=== PATIENT | female | born 1945 | race Caucasian/White ===

== ENCOUNTER → 2017-06-23 | Outpatient (CLI) | payer OTHER ==
[~2017-06-23] MED LIST: ADVAIR HFA120 INHALA IH; ASPIR-LOW81 MG PO; ASPIRIN81 M2 PO; BISAC-EVAC10 MG PR; CIPRO500 MG PO; COUMADIN3 MG PO; DOCUSATE SODIU100 MG PO; DUONEB 2.5-0.5 M3 ML AEROSOL; DUONEB 2.5-0.5 M3 ML IPPB; ELIQUIS2.5 MG PO; FERROUS SULFAT325 MG PO; FUROSEMIDE20 MG PO; FUROSEMIDE40 MG PO; GABAPENTIN100 MG PO; GLUCAGEN1 MG IM/SC; GLYBURIDE5 MG PO; IMDUR60 MG PO; IPRATR-ALBUTEROL3 ML IH; ISOSORBIDE MONO30 MG PO; ISOSORBIDE MONO60 MG PO; K-DUR20 MEQ PO; KLOR-CON M2020 MEQ PO; LEVEMIR100 UNIT/2 SC; LEVOFLOXACIN750 MG PO; LOPRESSOR25 MG PO; LOSARTAN POTASS50 MG PO; LOVENOX30 MG/0.3 SC; Lasix PO; MAG-OXIDE400 MG PO; METFORMIN HCL1000 MG PO; METFORMIN HCL500 MG PO; METOPROLOL TART25 MG PO; MICONAZOLE NITR30 GM TP; NABI650T PO; NEBULIZER MC; NOVOLOG PE100 UNITS/ SC; NYSTATIN15 GM TP; OXYCODONE HCL5 MG PO; PIOGLITAZONE HC30 MG PO; PRAVASTATIN SOD40 MG PO; SPIRIVA RESPIMAT4 GM IH; ST. JOSEPH ASPI81 MG PO; TYLENOL REGULA325 MG PO; VITAMIN D31000 UNIT PO; VITAMIN D32000 UNI1 PO; WARFARIN SODIUM3 MG PO; ZINC OXIDE56.7 GM TP
== END | disposition home or self-care (01) ==
LOC: NUC 06-16 09:00
DX: R93.7 Abnormal findings on diagnostic imaging of other parts of musculoskeletal system (principal)
CPT/HCPCS: 78315; A9503

== ENCOUNTER → 2017-07-03 | Outpatient (CLI) | payer OTHER | END | disposition home or self-care (01) | LOC: NUC 06:30 → WOUND 07:30 → NUC 08:00 | PROC: C71 Nuclear Medicine, Lymphatic and Hematologic System, Planar Nuclear Medicine Imaging (ICD-10-PCS; principal; 2017-07-03) | PROC: C7101ZZ Planar Nuclear Medicine Imaging of Bone Marrow using Technetium 99m (Tc-99m) (ICD-10-PCS; principal; 2017-07-03) | DX: M86.9 Osteomyelitis, unspecified (principal) | CPT/HCPCS: 78102; 78805; 78999; A9541; A9570; J1644 ==